=== PATIENT | male | born 1945 | race Caucasian/White ===

== ENCOUNTER 2021-01-04 14:04 | Inpatient (IN) | payer MEDICARE, SELFPAY ==
[~2021-01-04] VITALS: Ht 182.9 cm; Wt 112.5 kg
--- NOTE | 2021-01-04 14:05 | NUR ---
Patient PRAKASH ALS accompanied [facility] squad [facility], transferred to bed 9. RN is evaluating the patient at bedside.
[2021-01-04 14:13] VITALS: BP 209/113
[2021-01-04] MEDS ORDERED: NACL 0.9% 1,000 ML IV ONE ×2 (14:20→15:25)
--- NOTE | 2021-01-04 14:29 | NUR ---
75 MALE BIBA DUE TO FALLING IN SHOWER. EMS STATES PT WAS RAISED TO CHAIR AND STARTED TO SHOW SIGNS OF A. FIB AND EXPERIENCE SOB. PT DENIES HITTING HIS HEAD AND ANY LOC PMH: A. FIB, HIGH CHOLESTEROL, HTN NKA
--- NOTE | 2021-01-04 14:30 | NUR ---
Dr. Mckinnon is evaluating the patient at bedside.
--- NOTE | 2021-01-04 14:37 | NUR ---
XRAY BEDSIDE WITH PT
[2021-01-04] MEDS ORDERED: AMIODARONE 150 MG in DEXTROSE 5% 100 ML IV ONE (14:50)
--- NOTE | 2021-01-04 14:56 | NUR ---
URINAL PROVIDED TO PT BEDSIDE
[2021-01-04 14:59] LABS: HEMOGLOBIN 16.6 g/dL (12.0-18.0); MEAN CORPUSCULAR HEMOGLOBIN 34 pg (27-31); MEAN CORPUSCULAR HGB CONC 35 g/dL (33-37); MEAN CORPUSCULAR VOLUME 97.7 fL (80-94); PLATELET COUNT (AUTO) 187 K/uL (140-450); RED BLOOD CELL COUNT(AUTO) 4.91 MIL/uL (4.20-6.10); RED CELL DISTRIBUTION WIDTH 14.1 % (11.6-13.7); WHITE BLOOD COUNT (AUTO) 17.3 K/uL (4.8-10.8)
--- NOTE | 2021-01-04 15:03 | NUR ---
SPOKE WITH PHARMACY. PHARMACY IS GOING TO BRING MEDICTION TO RN STATION
[2021-01-04 15:13] LABS: ALBUMIN 4.1 g/dL (3.4-5.0); ANION GAP 17.8 (8-16); ASPARTATE AMINOTRANSFERASE 32 U/L (15-37); CARBON DIOXIDE 25.3 mmol/L (21-32); CHLORIDE 98 mmol/L (98-107); CREATININE 1.4 mg/dL (0.6-1.3); GLUCOSE 159 mg/dL (74-106); POTASSIUM 3.1 mmol/L (3.5-5.1); SODIUM SERUM 138 mmol/L (136-145); TOTAL BILIRUBIN 1.7 mg/dL (0.0-1.0); UREA NITROGEN, BLOOD 17 mg/dL (7-18)
[2021-01-04 15:21] LABS: LYMPHOCYTES % (MANUAL) 1 % (20-46); MONOCYTES % (MANUAL) 5 % (5-12)
[2021-01-04] MEDS ORDERED: hydrALAZINE 20 MG/ML VIAL IVP ONE (15:55)
[2021-01-04] MEDS ORDERED: AMIODARONE 450 MG in DEXTROSE 5% 250 ML IV ONE (15:55)
[2021-01-04] MEDS ORDERED: DOCUSATE SODIUM 100 MG GELCAP PO PRN (16:45)
[2021-01-04] MEDS ORDERED: HYDROcodone/APAP 5/325 MG 1 TAB TAB PO PRN (16:45)
[2021-01-04] MEDS ORDERED: LORazepam 2 MG/ML VIAL IM/IVP PRN (16:45)
[2021-01-04] MEDS ORDERED: ACETAMINOPHEN 325 MG TAB PO PRN (16:45)
[2021-01-04] MEDS ORDERED: MORPHINE SULFATE 2 MG/ML SYR IVP PRN (16:45)
[2021-01-04] MEDS ORDERED: ONDANSETRON 4 MG/2 ML VIAL IVP PRN (16:45)
[2021-01-04] MEDS ORDERED: ZOLPIDEM 5 MG TAB PO PRN (16:45)
[2021-01-04] MEDS ORDERED: cefTRIAXone 2,000 MG in DEXTROSE 5% 100 ML IV ONE (16:45)
[2021-01-04] MEDS ORDERED: AMIODARONE 450 MG in DEXTROSE 5% 250 ML IV SCH (17:00)
[2021-01-04] MEDS ORDERED: cefTRIAXone 2,000 MG VIAL ONE (17:20)
[2021-01-04] MEDS ORDERED: POTASSIUM CHLORIDE 40 MEQ, LIDOCAINE MPF 1% 25 MG in NACL 0.9% 250 ML IV SCH (17:30)
[2021-01-04 17:35] LABS: CHOL/HDL RATIO 2.9 (1-4.5); FREE T4 (FREE THYROXINE) 0.99 ng/dL (0.76-1.46); MAGNESIUM 1.1 mg/dL (1.8-2.4); THYROID STIMULATING HORMONE 1.22 uIU/mL (0.34-3.74)
--- NOTE | 2021-01-04 17:36 | NUR ---
Gave report to TAMAR Lee for pending ICU transfer.
[2021-01-04 17:40] LABS: PHOSPHORUS 1.1 mg/dL (2.5-4.9)
[2021-01-04 17:47] LABS: PROTHROMBIN TIME 10.9 secs (10.8-13.4)
[2021-01-04] MEDS ORDERED: METOPROLOL 5 MG/5 ML VIAL IV SCH (18:00)
--- NOTE | 2021-01-04 18:19 | NUR ---
[facility]SA SWAB TAKEN BEDSIDE AND GIVEN TO PRODUCT CONSULTANT
[2021-01-04] MEDS ORDERED: METOPROLOL 5 MG/5 ML VIAL IV PRN (18:30)
--- NOTE | 2021-01-04 18:36 | NUR ---
Patient will be admitted to care of DR. ANA WOOD. Admited to ICU. Will go to room 1. Belongings list completed. Report to TAMAR SR.
--- NOTE | 2021-01-04 18:40 | NUR ---
PATIENT ARRIVED ICU BED ROOM ACCOMPANIED WITH ED NURSE SHAWN AND EMT. ASSISTED TO TRANSFER FROM [facility], POSITIONED PATIENT COMFORTABLY. PATIENT IS ALERT ORIENT TO NAME, PLACE, AND DATE, SPEAKS LAO. RESPIRATION EVEN, UNLABORED ON ROOM AIR. PER ED NURSE SHAWN, PATIENT PULLED OUT HIS IV ON HIS WAY TO ICU. BLOOD ON TOWEL AND BED SHEET NOTED. LAC 20G IV IS OOZING AND LEAKING, NOT ATTACH TO ANY IV LINE. R HAND 22G, OOZING, LEAKING, ATTACHED TO POTASSIUM CHLORIDE, NOT RUNNING AT THIS TIME. WILL RESTART NEW IV. SKIN WARM TO TOUCH, WET, REDNESS ON SACRAL AND L LOWER LEG NOTED, NO PICTURE TAKEN IN ED. PATIENT IS CONTINENT, ABLE TO USE URINAL AT BEDSIDE WITH ASSIST. APPLIED DOUGHNUT FRYER, PULSE MONITOR. ORIENTED PATIENT TO HIS ROOM, DEMONSTRATE ON HOW TO USE THE CALL LIGHT, BED REMOTE. PATIENT VERBALIZED OK. FALL RISK PROTOCOL INITIALED. SAFETY MEASURES IN PLACE. BED IN LOW POSITION, CALL LIGHT WITHIN REACH, AND BED ALARM ACTIVATED.
--- NOTE | 2021-01-04 18:42 | NUR ---
CHANGED PATIENT INTO YELLOW GOWN, SOCKS, ALL DIRTY LINENS. FRANK HARTMAN COLLECTED AND WILL SEND TO LAB. SACRAL PICTURE AND L LOWER LEG PICTURE TAKEN. PATIENT IS RESTING ON BED AT THIS TIME. SAFETY MEASURES IN PLACE.
[2021-01-04 19:00] VITALS: BP 143/100
--- NOTE | 2021-01-04 19:09 | NUR ---
RECEIVED A CALL FROM JOSEFIAN HICKMAN [phone], UPDATED JOSEFINA WITH PATIENT'S CURRENT PLAN CONDITION, ANSWERED ALL JOSEFINA'S QUESTIONS. JOSEFINA WAS AWARE PATIENT TRANSFER TO ICU BED 1. PER JOSEFINA, PATIENT RECEIVED COVID VACCINE.
--- NOTE | 2021-01-04 19:18 | NUR ---
CHARGE NURSE RADHA IS AT BEDSIDE AND STARTING IV AT THIS TIME.
--- NOTE | 2021-01-04 19:20 | NUR ---
RECIEVED BEDSIDE ENDORSEMENT FROM DAY SHIFT RN, PT A&0X2/3, ABLE TO MAKE NEEDS KNOWNA DN FOLLOW COMMANDS, AFIB ON MONITOR, PERIPHERAL PULES PALPABLE TO TOUCH, LUNGS CLEAR AND UNLABORED, ON ROOM AIR W/ SATURATION 96%, ABD SOFT AND NON TENDER TO TOUCH, AFEBRILE, SKIN WARM DRY AND INTACT, SACRAL AND LEFT LOWER LEG REDNESS, PT INCONTINENT ABLE TO USE URINAL, RFA 20 G PIV INFUSING AMIODARONE @ 1MG/MIN, RH 22G PIV INFUSING NS @ 100MLS/HR AND P K @ 68MLS/HR, PT SHOWING NO SIGNS OF ACUTE DISTRESS, SAFETY MEASURES IN PLACE, WILL CONTINUE WITH CURRENT POC
[2021-01-04 20:00] VITALS: BP 143/83
[2021-01-04] MEDS: NACL 0.9% 1,000 ML IV SCH (20:00)
[2021-01-04] MEDS: carvediloL 12.5 MG TAB PO SCH (20:55)
[2021-01-04 21:00] VITALS: BP 149/66
[2021-01-04] MEDS ORDERED: MAG SULF 2000 MG/WATER PREMIX 100 ML IV SCH (21:00)
--- NOTE | 2021-01-04 21:10 | NUR ---
ADMINISTERED 2100H MEDICATIONS PER MD ORDERS
[2021-01-04] MEDS: PIPERACILLIN/TAZOBACTAM 3.375 GM in DEXTROSE 5% 50 ML IV SCH (21:14)
[2021-01-04 22:00] VITALS: BP 124/80
[2021-01-04 22:23] LABS: APPEARANCE,URINE CLEAR (CLEAR); BILIRUBIN,URINE NEGATIVE (NEGATIVE); BLOOD, URINE 2+ (NEGATIVE); COLOR,URINE ORANGE (YELLOW); LEUKOCYTE ESTERASE ,URINE NEGATIVE (NEGATIVE); NITRITE, URINE NEGATIVE (NEGATIVE); UGLUCOSE 1+ (NEGATIVE)
[2021-01-04 22:35] LABS: RBC,URINE 0-5 /HPF (0-5); WBC,URINE 0-5 /HPF (0-5)
--- NOTE | 2021-01-04 22:46 | NUR ---
DECREASED AMIODARONE DRIP INFUSING FROM 1MG/MIN TO 0.5MG/MIN
[2021-01-04 23:00] VITALS: BP 145/88
--- NOTE | 2021-01-04 23:30 | NUR ---
PT APPEARS TO BE ASLEEP AND SHOWING NO SIGNS OF ACUTE DISTRESS
[2021-01-05] VITALS (18 sets, daily range): BP systolic 109–153; BP diastolic 41–124
--- NOTE | 2021-01-05 01:45 | NUR ---
PT ASLEEP AND SHOWING NO SIGNS OF ACUTE DISTRESS
[2021-01-05] MEDS: NACL 0.9% 1,000 ML IV SCH ×3 (02:45→22:35)
[2021-01-05] MEDS: PIPERACILLIN/TAZOBACTAM 3.375 GM in DEXTROSE 5% 50 ML IV SCH ×3 (04:03→22:34)
--- NOTE | 2021-01-05 04:18 | NUR ---
ADMINISTERED 0500H MEDICATIONS PER MD ORDERS
[2021-01-05] MEDS ORDERED: AMIODARONE 450 MG in DEXTROSE 5% 250 ML IV SCH (05:50)
--- NOTE | 2021-01-05 06:40 | NUR ---
CONTACTED [facility] IN REGARDS TO CRITICAL LAB REPORTING, NO ANSWER, LEFT MESSAGE AND AWAITING CALL BACK
--- NOTE | 2021-01-05 06:53 | NUR ---
CONTACTED [facility] AGAIN IN REGARDS TO CRITICAL LAB REPORTING, NO ANSWER, LEFT MESSAGE, STILL AWAITING CALL BACK
--- NOTE | 2021-01-05 07:20 | NUR ---
REPORT RECEIVED FROM PM SHIFT FOR CONTINUITY OF CARE. PT ON ROOM AIR. A&OX4. ABLE TO MAKE NEEDS KNOWN. AFIB ON MONITOR. IV SITE RT FOREARM 20G, INTACT, PATENT, GOOD BLOOD RETURN INFUSING NS 100ML/HR, LT WRIST IV 20G INFUSING AMIODARONE DRIP AT 0.5MG/MIN, INTACT, PATENT, GOOD BLOOD RETURN. ABD DISTENDED, BOWEL SOUNDS ACTIVE. SKIN INTACT, SACRAL BLANCHABLE REDNESS. WARM AND DRY. HOB 30 DEGREES. BED LOCKED IN LOWEST POSITION. WILL CONTINUE TO MONITOR. Addendum: 01/05/21 at 1029 by Thiago Calderon RN LT WRIST 22G
--- NOTE | 2021-01-05 07:20 | NUR ---
ENDORSED TO DAY SHIFT RN FOR CONTINUITY OF CARE
--- NOTE | 2021-01-05 07:50 | NUR ---
PT TAKEN TO CT SCAN VIA JOHN
--- NOTE | 2021-01-05 08:00 | NUR ---
PT RETURNED FROM CT SCAN
--- NOTE | 2021-01-05 08:21 | NUR ---
DR WOOD AT BEDSIDE EXAMINING PT
--- NOTE | 2021-01-05 08:21 | NUR ---
PT'S JOSEFINA AT BEDSIDE
--- NOTE | 2021-01-05 08:44 | NUR ---
PATIENT HAS BEEN SCREENED AND CATEGORIZED HIGH NUTRITION RISK. PATIENT WILL BE SEEN WITHIN 1-2 DAYS OF ADMISSION. 01/05/21-01/06/[address]
[2021-01-05] MEDS: carvediloL 12.5 MG TAB PO SCH ×2 (08:52→22:32)
--- NOTE | 2021-01-05 08:52 | NUR ---
PT PROVIDED WITH BREAKFAST.
--- NOTE | 2021-01-05 09:00 | NUR ---
PT HAD 1 BOWEL MOVEMENT, CLEANED AND REPOSITIONED.
--- NOTE | 2021-01-05 09:21 | NUR ---
ULTRASOUND AT BEDSIDE
--- NOTE | 2021-01-05 10:24 | NUR ---
PT HAD 1 BOWEL MOVEMENT AND 1 VOID, CLEANED AND REPOSITIONED.
--- NOTE | 2021-01-05 11:29 | NUR ---
DR ROBLES AT BEDSIDE EXAMINING PT
--- NOTE | 2021-01-05 11:53 | NUR ---
LUNCH TRAY PROVIDED, PT'S AT BEDSIDE
--- NOTE | 2021-01-05 12:15 | NUR ---
RT FOREARM IV OCCLUDED. IV DISCONTINUED AND GAUZE BANDAGE APPLIED. INSERTED IV TO LT AC 20G, INTACT, PATENT, GOOD BLOOD RETURN.
--- NOTE | 2021-01-05 12:30 | NUR ---
PT USING BEDSIDE COMMODE. HAD 1 BOWEL MOVEMENT
[2021-01-05 12:38] LABS: BASOPHILS # (AUTO) 0.1 K/uL (0.00-0.22); BASOPHILS % (AUTO) 0.3 % (0.0-2.0); HEMATOCRIT 46.7 % (36-52); HEMOGLOBIN 15.9 g/dL (12.0-18.0); LYMPHOCYTES # (AUTO) 1.3 K/uL (2.0-11.5); LYMPHOCYTES % (AUTO) 7.2 % (20.5-51.1); MEAN CORPUSCULAR HEMOGLOBIN 34 pg (27-31); MEAN CORPUSCULAR HGB CONC 34 g/dL (33-37); MEAN CORPUSCULAR VOLUME 100.9 fL (80-94); MONOCYTES # (AUTO) 1.2 K/uL (0.8-1.0); MONOCYTES % (AUTO) 6.8 % (1.7-9.3); NEUTROPHILS # (AUTO) 15.7 K/uL (1.8-7.7); NEUTROPHILS % (AUTO) 85.7 % (42.2-75.2); PLATELET COUNT (AUTO) 167 K/uL (140-450); RED BLOOD CELL COUNT(AUTO) 4.63 MIL/uL (4.20-6.10); RED CELL DISTRIBUTION WIDTH 14.1 % (11.6-13.7); WHITE BLOOD COUNT (AUTO) 18.3 K/uL (4.8-10.8)
[2021-01-05 12:50] LABS: ALBUMIN 3.6 g/dL (3.4-5.0); ANION GAP 16.4 (8-16); ASPARTATE AMINOTRANSFERASE 46 U/L (15-37); CARBON DIOXIDE 23.7 mmol/L (21-32); CHLORIDE 101 mmol/L (98-107); CREATININE 2.2 mg/dL (0.6-1.3); GLUCOSE 123 mg/dL (74-106); MAGNESIUM 1.7 mg/dL (1.8-2.4); POTASSIUM 3.1 mmol/L (3.5-5.1); SODIUM SERUM 138 mmol/L (136-145); TOTAL BILIRUBIN 1.4 mg/dL (0.0-1.0); UREA NITROGEN, BLOOD 29 mg/dL (7-18)
[2021-01-05 12:52] LABS: ALBUMIN 3.5 g/dL (3.4-5.0); BILIRUBIN,DIRECT 0.5 mg/dL (0.0-0.3); TOTAL BILIRUBIN 1.4 mg/dL (0.0-1.0)
--- NOTE | 2021-01-05 13:35 | NUR ---
PT. IS UP FOR BEDSIDE COMMODE WITH ASSISTANCE OF PRIMARY RN, PT SKIN IS DRY INTACT SACRAL AND BUTTOCKS REDNESS FROM POSITIONING, BLE SKIN INTACT, NO S/S OF INFECTION.
--- NOTE | 2021-01-05 15:16 | NUR ---
01/05/21 RD INITIAL ASSESSMENT COMPLETED PLEASE REFER TO NUTRITION ASSESSMENT UNDER CARE ACTIVITY FOR ESTIMATED NUTRITIONAL NEEDS. 1. CONTINUE CARDIAC DIET TOLERATED 2. RECOMMEND BLAND DIET IF LOOSE BOWELS PERSISTS 3. RD PROVIDED CARDIAC NUTRITION EDUCATION 4. RD TO FOLLOW-UP 5-7 DAYS, LOW RISK AICHA YOON, RD
--- NOTE | 2021-01-05 15:30 | NUR ---
PT AT BEDSIDE
[2021-01-05] MEDS ORDERED: POTASSIUM CHLORIDE 10 MEQ TABER PO SCH (15:45)
--- NOTE | 2021-01-05 16:03 | NUR ---
PAGED DR TOWNSEND, ORDERS TO HOLD AMIODARONE DRIP. NO PO MEDS ORDERED,. PT TO BE TELE STATUS WHEN DRIP IS OFF.
--- NOTE | 2021-01-05 16:18 | NUR ---
DR TOWNSEND AT BEDSIDE EXAMINING PT
--- NOTE | 2021-01-05 16:30 | NUR ---
HELD AMIODARONE DRIP, PER DR TOWNSEND. ORDERS FOR TELEMETRY STATUS.
--- NOTE | 2021-01-05 17:15 | NUR ---
PT TRANSFERRED TO [place] [address] B [facility] JEFRY BOYLE AND ZENAIDA RT Addendum: 01/05/21 at 1724 by Jefry Calderon RN WRONG PT, PLS DISREGARD
--- NOTE | 2021-01-05 17:34 | NUR ---
PT TRANSFERRED FROM ICU-1 TO TELE 106 B VIA [place]. ACCOMPANIED BY MARISEL JIMÉNEZGRADUATION COACH AND PHAM BOYLE.
--- NOTE | 2021-01-05 17:56 | NUR ---
PT AMBULATED TO RESTROOM WITH ASSIST
--- NOTE | 2021-01-05 18:05 | NUR ---
PT AMBULATED BACK TO BED WITH ASSIST.
--- NOTE | 2021-01-05 18:26 | NUR ---
ULTRASOUND AT BEDSIDE
--- NOTE | 2021-01-05 19:00 | NUR ---
DINNER TRAY PROVIDED
--- NOTE | 2021-01-05 19:02 | NUR ---
RECEIVED CALL FROM NOVEMBER MEASURING MACHINE OPERATOR. PT WILL BE GOING TO [facility]RM [address]. UNDER DR. Sussy TAVAREZ. REPORT TO BE GIVEN TO [phone] Addendum: 01/05/21 at 1906 by Thiago Calderon RN WRONG PT, PLS DISREGARD
--- NOTE | 2021-01-05 19:23 | NUR ---
REPORT GIVEN TO MASHA BOYLE FOR CONTINUITY OF CARE
--- NOTE | 2021-01-05 19:30 | NUR ---
RECEIVED REPORT FROM JEFRY BOYLE DAYSHIFT NURSE AT BEDSIDE FOR CONTINUITY OF CARE. PT LYING IN BED, HOB UP 35% PT IS AOX4 HE HAS 2 IV SITES L WRIST 22G AND LAC 20G RUNNING NORMAL SALINE AT 100MLS/HR. PT HAS SCD'S ON FOR DVT PREVENTION. PT HAS NO C/O VOICED AT THIS TIME ALL FALLS PRECAUTIONS IN PLACE.
--- NOTE | 2021-01-05 20:00 | NUR ---
PT ASSISTED UP FROM BED TO TOILET. HE HAS NO C/O OF SOB RESPIRATIONS A LITTLE LABORED WITH ACTIVITY, BUT EVEN AND UNLABORED WHEN RESTING IN BED. IV SITE INTACT AND RUNNING NORMAL SALINE AT 100 MLS/HR. V/S FOLLOWS: T 98.4 P 99 R 18 B/P 142/74 02 96% ON ROOM AIR. PT DENIES PAIN AT THIS TIME. ALL FALLS PRECAUTIONS IN PLACE.
--- NOTE | 2021-01-05 21:00 | NUR ---
ASSISTED PT AGAIN TO TOILET, PT WALKED WITH STEADY GAIT ONCE ASSISTED UP FROM BED. PT GIVEN ORDERED COREG PO MEDICATION, EXPLAINED PURPOSE AND SIDE EFFECTS OF MEDICATION. PT VERBALIZED UNDERSTANDING. PT ALSO GIVEN ZOSYN FOR EMPIRIC THERAPY, DUE TO ELEVATED WBC. PT VERBALIZED PURPOSE AND SIDE EFFECTS OF MEDICATION. AGAIN PT VERBALIZED UNDERSTANDING. NORMAL SALINE RUNNING AT 100MLS/HR ORDERED. ALL FALLS PRECAUTIONS IN PLACE. ALL REQUESTS ATTENDED .
--- NOTE | 2021-01-05 23:00 | NUR ---
PT STAND BY ASSIST TO TOILET, ALL OTHER REQUESTS ATTENDED BY [id number]. IV SITE INTACT AND RUNNING NORMAL SALINE AT 100MLS/HR. ALL ORDERED PRECAUTIONS IN PLACE.
[2021-01-06] VITALS: BP 105/63
--- NOTE | 2021-01-06 00:15 | NUR ---
PT IN BED V/S FOLLOWS: T 97.8 P 90 R 18 B/P 105/63 02 97% ON ROOM AIR. NORMAL SALINE RUNNING AT 100MLS/HR ORDERED. ALL FALLS PRECAUTIONS PRECAUTIONS IN PLACE.
--- NOTE | 2021-01-06 02:00 | NUR ---
ROUNDS DONE, PT IN BED ASLEEP ALL FALLS PRECAUTIONS IN PLACE.
[2021-01-06 04:00] VITALS: BP 117/84
--- NOTE | 2021-01-06 05:30 | NUR ---
ZOSYN HUNG AND RUNNING ORDERED. EDUCATED AND UPDATED PT REGARDING ZOSYN, DX AND TESTS RESULTS. PT VERBALIZED UNDERSTANDING OF MEDICATION, DX AND TESTS RESULTS,. NORMAL SALINE RUNNING ORDERED. ALL FALLS PRECAUTIONS IN PLACE. PT HAS NO C/O OF PAIN OR SOB. ALL UNIVERSAL FALLS PRECAUTIONS IN PLACE.
[2021-01-06] MEDS: PIPERACILLIN/TAZOBACTAM 3.375 GM in DEXTROSE 5% 50 ML IV SCH ×3 (05:53→20:41)
[2021-01-06 06:50] LABS: ANION GAP 15.3 (8-16); CARBON DIOXIDE 22.3 mmol/L (21-32); CHLORIDE 107 mmol/L (98-107); CREATININE 1.7 mg/dL (0.6-1.3); GLUCOSE 94 mg/dL (74-106); POTASSIUM 3.6 mmol/L (3.5-5.1); SODIUM SERUM 141 mmol/L (136-145); UREA NITROGEN, BLOOD 33 mg/dL (7-18)
[2021-01-06 06:54] LABS: PHOSPHORUS 2.6 mg/dL (2.5-4.9)
[2021-01-06 06:58] LABS: BASOPHILS % (AUTO) 0.2 % (0.0-2.0); EOSINOPHILS % (AUTO) 0.2 % (0.0-4.0); HEMOGLOBIN 13.4 g/dL (12.0-18.0); LYMPHOCYTES # (AUTO) 1.1 K/uL (2.0-11.5); LYMPHOCYTES % (AUTO) 7.6 % (20.5-51.1); MEAN CORPUSCULAR HEMOGLOBIN 34 pg (27-31); MEAN CORPUSCULAR HGB CONC 34 g/dL (33-37); MEAN CORPUSCULAR VOLUME 99.6 fL (80-94); MONOCYTES # (AUTO) 0.9 K/uL (0.8-1.0); MONOCYTES % (AUTO) 6.4 % (1.7-9.3); NEUTROPHILS # (AUTO) 11.8 K/uL (1.8-7.7); NEUTROPHILS % (AUTO) 85.6 % (42.2-75.2); PLATELET COUNT (AUTO) 119 K/uL (140-450); RED BLOOD CELL COUNT(AUTO) 3.92 MIL/uL (4.20-6.10); RED CELL DISTRIBUTION WIDTH 13.3 % (11.6-13.7); WHITE BLOOD COUNT (AUTO) 13.8 K/uL (4.8-10.8)
[2021-01-06 07:19] LABS: MAGNESIUM 1.6 mg/dL (1.8-2.4)
--- NOTE | 2021-01-06 07:20 | NUR ---
RECEIVED REPORT FROM FLOOR FRAMER NURSE FOR CONTINUITY OF CARE. PATIENT IN BED SLEEPING. BREATHING EVEN AND UNLABORED. ALL SAFETY MEASURES IN PLACE. WILL CONTINUE TO MONITOR.
[2021-01-06 08:00] VITALS: BP 139/82
--- NOTE | 2021-01-06 08:13 | NUR ---
NOTIFIED DR. HERBERT OF PATIENT MAG LEVEL 1.6. PER DR. HERBERT ORDER MAG-OX 800 DAILY.
[2021-01-06] MEDS: NACL 0.9% 1,000 ML IV SCH ×3 (08:45→23:23)
[2021-01-06] MEDS ORDERED: ASPIRIN 325 MG TABEC PO SCH (09:00)
--- NOTE | 2021-01-06 09:00 | NUR ---
PATIENT IS AWAKE AND ALERT. BREATHING IS EVEN AND UNLABORED. NO ACUTE DISTRESS NOTED. AT BEDSIDE. ALL SAFETY MEASURES IN PLACE. WILL CONTINUE TO MONITOR.
[2021-01-06] MEDS: ECOTRIN 81 MG TABEC PO SCH (09:23)
[2021-01-06] MEDS: carvediloL 12.5 MG TAB PO SCH ×2 (09:24→20:40)
[2021-01-06] MEDS: MAGNESIUM OXIDE 400 MG TAB PO SCH (09:25)
--- NOTE | 2021-01-06 11:05 | NUR ---
PATIENT AWAKE AND ALERT. NO ACUTE DISTRESS NOTED. PT AT BEDSIDE. WILL CONTINUE TO MONITOR.
[2021-01-06 12:00] VITALS: BP_SYST 128; BP_SYST 139; BP_DIAS 82; BP_DIAS 88
--- NOTE | 2021-01-06 12:17 | NUR ---
PATIENT AWAKE SITTING UP IN BED. PATIENT BREATHING IS EVEN AND UNLABORED. PATIENT HAVING LUNCH AT THIS TIME. ALL SAFETY MEASURES IN PLACE WILL CONTINUE TO MONITOR.
--- NOTE | 2021-01-06 13:27 | NUR ---
dc planning: [facility] SPOKE WITH SUKHDEEP BLAS ASKED IF PT IS STABLE FOR TRANSFER TO THE CONTRACTED FACILITY. CLARIFIED WITH DR HERBERT AND PER PT IS STABLE FOR TRANSFER ,DC PLAN TOMORROW. PER ERIN IF WE DC PT IN COUPLE OF DAYS NO NEED TO TRANSFER. SHE PROVIDE AUTH FOR STAY [id number]
--- NOTE | 2021-01-06 15:00 | NUR ---
PATIENT IS SLEEPING. BREATHING IS EVEN AND UNLABORED. NO ACUTE DISTRESS NOTED. ALL SAFETY MEASURES IN PLACE. WILL CONTINUE TO MONITOR.
[2021-01-06 16:00] VITALS: BP 152/82
--- NOTE | 2021-01-06 17:31 | NUR ---
PATIENT AWAKE AND ALERT. BREATHING IS EVEN AND UNLABORED. NO ACUTE DISTRESS NOTED. SAFETY MEASURES IN PLACE. WILL CONTINUE TO MONITOR.
--- NOTE | 2021-01-06 19:20 | NUR ---
ENDORSED TO CONSUMER ADVOCATE NURSE OF CONTINUITY OF CARE. PATIENT STABLE. NO ACUTE DISTRESS NOTED. SAFETY MEASURES IN PLACE.
[2021-01-06 20:00] VITALS: BP 127/81
--- NOTE | 2021-01-06 20:00 | NUR ---
RECEIVED REPORT FROM DAY SHIFT RN EARLIER REGARDING PT FOR CONTINUITY OF CARE. RECEIVED PATIENT LAYING DOWN ON BED, A/A/OX4. NO SIGNS AND SYMPTOMS OF DISTRESS NOTED. PT DENIES ANY CHEST PAIN, SOB, PALPITATIONS, AND DIZZINESS. NO COMPLAIN AT THIS TIME. DISCUSS POC WITH THE PT AND VERBALIZED UNDERSTANDING. FALL PRECAUTION IMPLEMENTED AND INSTRUCTED TO CALL FOR ASSISTANCE AT ALL TIMES. CALL LIGHT WITHIN REACH. WILL CONTINUE POC AND MONITORING.
--- NOTE | 2021-01-06 22:00 | NUR ---
ADMINISTERED ALL SCHEDULED MEDICATIONS EARLIER. PATIENT TOLERATED WELL AND PROVIDED TEACHING. NO ADVERSE DRUG REACTION NOTED AND NO REPORTED COMPLAIN FROM THE PT.
[2021-01-07] VITALS: BP 135/76
--- NOTE | 2021-01-07 | NUR ---
PATIENT'S VITAL SIGNS STABLE, AFEBRILE, SAT 95% ON RA. NO COMPLAIN AT THIS TIME. AFIB ON TIME CHECKER, HR 86. WILL CONTINUE TO OBSERVE.
--- NOTE | 2021-01-07 02:00 | NUR ---
PATIENT ASLEEP, VISIBLE CHEST RISE AND FALL NOTED. SAFETY MEASURES IN PLACE.
[2021-01-07 04:00] VITALS: BP 159/88
--- NOTE | 2021-01-07 04:00 | NUR ---
PATIENT'S VITAL SIGNS STABLE, AFEBRILE, SAT 94% ON RA. NO COMPLAIN AT THIS TIME. AFIB ON SENIOR RESTAURANT MANAGER, HR 92. WILL CONTINUE TO OBSERVE.
[2021-01-07] MEDS: PIPERACILLIN/TAZOBACTAM 3.375 GM in DEXTROSE 5% 50 ML IV SCH (05:36)
--- NOTE | 2021-01-07 06:22 | NUR ---
PATIENT STABLE. NO S/S OF DISTRESS NOTED. ALL NEEDS ATTENDED. NO COMPLAIN AT THIS TIME. WILL ENDORSE THE PATIENT TO THE ONCOMING RN FOR CONTINUITY OF CARE.
--- NOTE | 2021-01-07 07:37 | NUR ---
PATIENT STABLE. ENDORSED PATIENT TO DAY TAMAR SANTIAGO FOR CONTINUITY OF CARE. SIGNING OFF.
[2021-01-07 08:00] VITALS: BP_SYST 153; BP_SYST 159; BP_DIAS 88; BP_DIAS 95
--- NOTE | 2021-01-07 08:00 | NUR ---
RECEIVED REPORT FROM MANAGEMENT INSTRUCTOR FOR CONTINUITY OF CARE. PATIENT ALERT AWAKE ORIENTED, NOT IN DISTRESS NOTED. DENIES CHEST PAIN. ON MONITOR SHOWS CONTROLLED A. FIB. AMBULATE TO THE BATHROOM. NEEDS ATTENDED. WILL CONTINUE TO MONITOR.
[2021-01-07] MEDS: MAGNESIUM OXIDE 400 MG TAB PO SCH (08:55)
[2021-01-07] MEDS: carvediloL 12.5 MG TAB PO SCH (08:56)
[2021-01-07] MEDS: ECOTRIN 81 MG TABEC PO SCH (08:56)
--- NOTE | 2021-01-07 09:00 | NUR ---
SEEN BY DR. HERBERT AND DR BRUCE AND CLEARED PATIENT TO GO HOME. WILL CONTINUE TO MONITOR.
[2021-01-07] MEDS ORDERED: CARV25TA PO (09:23)
[2021-01-07] MEDS ORDERED: AMOX-999 PO (09:23)
[2021-01-07] MEDS ORDERED: ASPI-1822 PO (09:23)
[2021-01-07] MEDS ORDERED: APIX2.5 PO (09:28)
--- NOTE | 2021-01-07 10:46 | NUR ---
ATTEMPTED TO SEE PATIENT FOR PHYSICAL THERAPY TREATMENT HOWEVER PATIENT REPORTS FEELING NAUSEOUS FROM THE MEDICATION AND DOES NOT HAVE ENERGY TO PERFORM OOB ACTIVITIES AT THIS TIME. WILL FOLLOW UP IF APPROPRIATE; RN AWARE.
[2021-01-07 11:30] LABS: BASOPHILS % (AUTO) 0.3 % (0.0-2.0); EOSINOPHILS # (AUTO) 0.1 K/uL (0-0.4); EOSINOPHILS % (AUTO) 0.6 % (0.0-4.0); HEMATOCRIT 39.7 % (36-52); HEMOGLOBIN 13.5 g/dL (12.0-18.0); LYMPHOCYTES # (AUTO) 0.8 K/uL (2.0-11.5); LYMPHOCYTES % (AUTO) 8.6 % (20.5-51.1); MEAN CORPUSCULAR HEMOGLOBIN 34 pg (27-31); MEAN CORPUSCULAR HGB CONC 34 g/dL (33-37); MONOCYTES # (AUTO) 0.5 K/uL (0.8-1.0); MONOCYTES % (AUTO) 5.1 % (1.7-9.3); NEUTROPHILS # (AUTO) 8.2 K/uL (1.8-7.7); NEUTROPHILS % (AUTO) 85.4 % (42.2-75.2); PLATELET COUNT (AUTO) 144 K/uL (140-450); RED BLOOD CELL COUNT(AUTO) 3.93 MIL/uL (4.20-6.10); RED CELL DISTRIBUTION WIDTH 13.9 % (11.6-13.7); WHITE BLOOD COUNT (AUTO) 9.6 K/uL (4.8-10.8)
[2021-01-07 11:40] LABS: CARBON DIOXIDE 21.7 mmol/L (21-32); CHLORIDE 105 mmol/L (98-107); CREATININE 1.2 mg/dL (0.6-1.3); GLUCOSE 100 mg/dL (74-106); MAGNESIUM 1.7 mg/dL (1.8-2.4); PHOSPHORUS 1.8 mg/dL (2.5-4.9); POTASSIUM 3.7 mmol/L (3.5-5.1); SODIUM SERUM 141 mmol/L (136-145); UREA NITROGEN, BLOOD 22 mg/dL (7-18)
--- NOTE | 2021-01-07 12:15 | NUR ---
DC TO HOME AMBULATORY ACCOMPANIED BY , WITH DC INSTRUCTION GIVEN AND VERBALIZED UNDERSTANDING. IN STABLE CONDITION.
--- NOTE | 2021-01-07 12:23 | NUR ---
1145: PATIENT REFUSED TO TAKE PICTURE ON BOTTOM AREA. HE VERBALIZED THAT HIS OK.
== END 2021-01-07 12:11 | disposition home or self-care (01) | DRG 871 ==
LOC: MED 14:04 → MTU 16:45 → MIC 17:55 → MTU 01-05 17:37
PROVIDERS: ADMIT Family Medicine; ATTEND Family Medicine
DX: A41.9 Sepsis, unspecified organism (principal); N17.0 Acute kidney failure with tubular necrosis; G93.41 Metabolic encephalopathy; I48.20 Chronic atrial fibrillation, unspecified; I16.1 Hypertensive emergency; N39.0 Urinary tract infection, site not specified; E87.6 Hypokalemia; Z20.822 Contact with and (suspected) exposure to COVID-19; I10 Essential (primary) hypertension; E78.5 Hyperlipidemia, unspecified; E83.42 Hypomagnesemia; I45.10 Unspecified right bundle-branch block; R65.20 Severe sepsis without septic shock; W18.2XXA Fall in (into) shower or empty bathtub, initial encounter; Y93.89 Activity, other specified; Y92.099 Unspecified place in other non-institutional residence as the place of occurrence of the external cause; Y99.8 Other external cause status
CPT/HCPCS: 36415; 70450; 71045; 76705; 76770; 80048; 80053; 80076; 81001; 82150; 82570; 83036; 83605; 83690; 83735; 83880; 84100; 84300; 84439; 84443; 84484; 85025; 85610; 85730; 87040; 87081; 87086; 93005; 93880; 96361; 96365; 96366; 96368; 96375; 97112; 97116; 97163-GP; 97530; 99285; J0282; J0360; J0696; J2001; J2543; J3475; J3480; J3490; J7030; J7060